=== PATIENT | female | born 1985 | race Caucasian/White ===

== ENCOUNTER 2018-03-17 22:12 | Emergency (ER) | payer BC ==
[~2018-03-17] VITALS: Ht 170.2 cm; Wt 56.4 kg
[2018-03-17] MEDS ORDERED: PROBIOTIC1 EAC1 PO (22:23)
[2018-03-17 22:47] LABS: EOS # 0.1 (0.04-0.40); EOS % 1.5 % (1.0-5.0); HEMATOCRIT 41.6 % (37.0-47.0); HEMOGLOBIN 14.1 g/dL (12.5-16.0); LYMPH# 2.3 (1.50-4.00); MEAN CELL VOLUME 85 fl (78-100); MEAN CORPUSCULAR HEMOGLOBIN 29 pg (27-31); MEAN CORPUSCULAR HGB CONC 34 g/dL (33-37); MEAN PLATELET VOLUME 11.6 fl (7.4-10.4); MONO # 0.4 (0.20-0.80); NEU # 3.2 (1.40-6.50); PLATELET COUNT 181 K/mm3 (130-400); RED BLOOD COUNT 4.91 M/mm3 (4.10-5.30); RED CELL DISTRIBUTION WIDTH 12.9 % (11.5-14.5)
[2018-03-17] MEDS ORDERED: SKYLA13.5 MG IU (22:59)
[2018-03-17 23:00] LABS: CALCIUM 9.2 mg/dL (8.4-10.2)
[2018-03-17 23:10] LABS: URINE APPEARANCE CLEAR; URINE BILIRUBIN NEGATIVE (NEGATIVE); URINE BLOOD NEGATIVE (NEGATIVE); URINE COLOR YELLOW; URINE GLUCOSE NEGATIVE (NEGATIVE); URINE KETONE NEGATIVE (NEGATIVE); URINE LEUKOCYTE ESTERASE NEGATIVE (NEGATIVE); URINE NITRATE NEGATIVE (NEGATIVE); URINE PROTEIN(semi-quant) NEGATIVE (NEGATIVE); URINE UROBILINOGEN NORMAL (NORMAL)
[2018-03-17 23:49] LABS: CLUE CELLS NOT OBSERVED (Not Observd)
[2018-03-17 23:58] VITALS: BP 134/84
[2018-03-19 09:52] LABS: GRAM STAIN AMS
== END 2018-03-17 23:58 | disposition home or self-care (01) ==
LOC: ED 22:12
PROVIDERS: Nurse Practitioner Family
DX: R10.2 Pelvic and perineal pain (principal); N92.1 Excessive and frequent menstruation with irregular cycle; Z97.5 Presence of (intrauterine) contraceptive device; Z88.2 Allergy status to sulfonamides; Z91.040 Latex allergy status
CPT/HCPCS: Q0111

== ENCOUNTER → 2018-03-18 | Outpatient (CLI) | payer BC ==
[2018-03-17 23:58] VITALS: BP 134/84
[~2018-03-18] MED LIST: PROBIOTIC1 EAC1 PO; SKYLA13.5 MG IU
== END ==
LOC: RAD 14:44
DX: K82.4 Cholesterolosis of gallbladder (principal); N93.9 Abnormal uterine and vaginal bleeding, unspecified; Z97.5 Presence of (intrauterine) contraceptive device

== ENCOUNTER → 2020-03-21 | Outpatient (CLI) | payer BC | LOC: LAB 10:15 | DX: N99.89 Other postprocedural complications and disorders of genitourinary system (principal) ==